=== PATIENT | female | born 1980 | race African-American/Black ===

== ENCOUNTER 2019-08-08 19:03 | Emergency (ER) | payer SELFPAY ==
[2019-08-08] MEDS ORDERED: IPRATROPIUM/ALBUTEROL 0.5-2.5 MG/3 ML AMPUL NEB ONE (19:58)
[2019-08-08] MEDS ORDERED: METHYLPREDNISOLONE INJ 125 MG/2 ML SDV IM ONE (19:58)
[2019-08-08] MEDS ORDERED: CETIRIZINE 10 MG TABLET PO ONE (19:59)
--- NOTE | 2019-08-08 20:01 | ER Document Report ---
ED Medical Screen (RME) - General Chief Complaint: Chest Pain Stated Complaint: CHEST PAINS Time Seen by Provider: 08/08/19 19:53 Notes: Patient is a 39-year-old female with history of asthma who presents the emergency department with chest pain and shortness of breath. Patient states that her chest pain started around 1830 this evening. Patient is visiting from out of town and arrived this morning. Patient has asthma, but forgot to bring her nebulizer treatments and albuterol inhaler. Patient states that she feels short of breath. She also states that she has a sore throat. Exam: Diminished breath sounds throughout all lung conrad. I have greeted and performed a rapid initial assessment of this patient. A comprehensive ED assessment and evaluation of the patient, analysis of test results and completion of medical decision making process will be conducted by an additional ED providers. Physical Exam - Vital signs Vitals: Temp Pulse Resp BP Pulse Ox 98.1 F 75 16 126/80 H 100 08/08/19 19:42 08/08/19 19:42 08/08/19 19:42 08/08/19 19:42 08/08/19 19:42 Course - Vital Signs Vital signs: Temp Pulse Resp BP Pulse Ox 98.1 F 75 16 126/80 H 100 08/08/19 19:42 08/08/19 19:42 08/08/19 19:42 08/08/19 19:42 08/08/19 19:42
[2019-08-08 20:17] LABS: ABSOLUTE BASOPHILS # (AUTO) 0.1 10^3/uL (0.0-0.2); ABSOLUTE EOSINOPHILS # (AUTO) 0.6 10^3/uL (0.0-0.6); ABSOLUTE LYMPHOCYTES (AUTO) 2.5 10^3/uL (0.5-4.7); ABSOLUTE MONOCYTES (AUTO) 0.5 10^3/uL (0.1-1.4); ABSOLUTE NEUT (AUTO) 7.9 10^3/uL (1.7-8.2); BASOPHILS % (AUTO) 0.6 % (0-2); EOSINOPHILS % (AUTO) 5.4 % (0-6); HEMATOCRIT 32.3 % (36.0-47.0); HEMOGLOBIN 10.2 g/dL (12.0-15.5); LYMPHOCYTES % (AUTO) 21.3 % (13-45); MEAN CORPUSCULAR HEMOGLOBIN 23.1 pg (27.0-33.4); MEAN CORPUSCULAR HGB CONC 31.6 g/dL (32.0-36.0); MEAN CORPUSCULAR VOLUME 73 fl (80-97); MONOCYTES % (AUTO) 4.5 % (3-13); PLATELET COUNT 405 10^3/uL (150-450); RED BLOOD COUNT 4.42 10^6/uL (3.72-5.28); RED CELL DISTRIBUTION WIDTH 17.3 % (11.5-14.0); SEGMENTED NEUTROPHILS % (AUTO) 68.2 % (42-78); TOTAL CELLS COUNTED % (AUTO) 100 %; WHITE BLOOD COUNT 11.6 10^3/uL (4.0-10.5)
[2019-08-08 20:34] LABS: ALBUMIN 3.9 g/dL (3.5-5.0); ALKALINE PHOSPHATASE 113 U/L (38-126); ANION GAP 9 (5-19); ASPARTATE AMINO TRANSFERASE 20 U/L (14-36); BILIRUBIN,DIRECT 0.3 mg/dL (0.0-0.4); BILIRUBIN,TOTAL 0.4 mg/dL (0.2-1.3); BLOOD UREA NITROGEN 21 mg/dL (7-20); CALCIUM 9.3 mg/dL (8.4-10.2); CARBON DIOXIDE 26 mmol/L (22-30); CHLORIDE 108 mmol/L (98-107); GLUCOSE 105 mg/dL (75-110); POTASSIUM 4.1 mmol/L (3.6-5.0); TOTAL PROTEIN 7.5 g/dL (6.3-8.2)
--- NOTE | 2019-08-08 20:57 | RADIOLOGY REPORT (SQ) ---
EXAM DESCRIPTION: X-RAY CHEST- One View CLINICAL HISTORY: Shortness of breath COMPARISON: None available TECHNIQUE: Single view of the chest. FINDINGS: There are overlying EKG leads. There are low lung volumes with compressive changes. There are no discrete air space infiltrates, pneumothoraces or pleural effusions. The pulmonary vascularity is normal. The cardiomediastinal silhouette is normal in size. No suspicious lytic or blastic osseous lesions are identified. IMPRESSION: There are no acute lung parenchymal findings.
--- NOTE | 2019-08-08 22:09 | ER Document Report ---
ED General - General Chief Complaint: Shortness Of Breath Stated Complaint: CHEST PAINS Time Seen by Provider: 08/08/19 19:53 Mode of Arrival: Ambulatory Information source: Patient TRAVEL OUTSIDE OF THE [place] IN LAST 30 DAYS: No - HPI Onset: This morning Onset/Duration: Gradual Quality of pain: Sharp Severity: Moderate Pain Level: 2 Associated symptoms: Nonproductive cough, Fever - to 101F, Hoarseness, Sore throat Exacerbated by: Coughing Relieved by: Denies Similar symptoms previously: No Recently seen / treated by doctor: No Notes: 39 year old female with a history of Asthma here for cough, congestion, shortness of breath, sore throat, and fever to 101F since this morning. The patient is passing through on her way home to [place] and she did not have an inhaler so she came to the ER. The patient was given a neb and steroids prior to me seeing her. The patient says she felt much better after this treatment. The patient denies known sick contacts. - Related Data Allergies/Adverse Reactions: tramadol Allergy (Verified 08/08/19 20:11) Home Medications: albuterol inhaler/neb. women vitamins Past Medical History - General Information source: Patient - Social History Smoking Status: Never Smoker Frequency of alcohol use: Occasional Drug Abuse: None Lives with: Family Family History: Reviewed & Not Pertinent Patient has suicidal ideation: No Patient has homicidal ideation: No Pulmonary Medical History: Reports: Hx Asthma Past Surgical History: Reports: Hx Section, Hx Orthopedic Surgery - ankle Review of Systems - Review of Systems Constitutional: Fever, Malaise EENT: Nose congestion, Throat pain, Throat swelling Cardiovascular: No symptoms reported Respiratory: Cough, Short of breath, Wheezing Gastrointestinal: No symptoms reported Genitourinary: No symptoms reported Female Genitourinary: No symptoms reported Musculoskeletal: No symptoms reported Skin: No symptoms reported Hematologic/Lymphatic: No symptoms reported Neurological/Psychological: No symptoms reported -: Yes All other systems reviewed and negative Physical Exam - Vital signs Vitals: Temp Pulse Resp BP Pulse Ox 98.1 F 75 16 126/80 H 100 08/08/19 19:42 08/08/19 19:42 08/08/19 19:42 08/08/19 19:42 08/08/19 19:42 - Notes Notes: GENERAL: Well-appearing, well-nourished and in no acute distress. HEAD: Atraumatic, normocephalic. EYES: Pupils equal round and reactive to light, extraocular movements intact, sclera anicteric, conjunctiva are normal. ENT: Nares patent, oropharynx with erythema and swelling of tonsils and uvula. Moist mucous membranes. NECK: Normal range of motion, supple without lymphadenopathy or JVD. LUNGS: Breath sounds clear to auscultation bilaterally and equal. No wheezes rales or rhonchi. HEART: Regular rate and rhythm without murmurs, rubs or gallops. ABDOMEN: Soft, nontender, normoactive bowel sounds. No guarding, no rebound. No masses appreciated. EXTREMITIES: Normal range of motion, no pitting or edema. No clubbing or cyanosis. NEUROLOGICAL: Cranial nerves II through XII grossly intact. Normal speech, normal gait. PSYCH: Normal mood, normal affect. SKIN: Warm, Dry, normal turgor, no rashes or lesions noted. Course - Re-evaluation Re-evalutation: 08/08/19 23:09 The patient came to the ER for URI like symptoms along with wheezing and short ness of breath. The patient likely has a URI which triggerd an asthma flare. The patient was treated with a neb and steroids prior to me seeing her and she felt much better. Patient tested negative for the Flu and Strep. Patient DCed with a script for Albuterol and Tessalon Perles. - Vital Signs Vital signs: Temp Pulse Resp BP Pulse Ox 98.1 F 75 16 126/80 H 97 08/08/19 19:42 08/08/19 19:42 08/08/19 19:42 08/08/19 19:42 08/08/19 20:26 - Laboratory Result Diagrams: 08/08/19 20:05 08/08/19 20:05 Laboratory results interpreted by me: 08/08/19 08/08/19 20:05 20:05 WBC 11.6 H Hgb 10.2 L Hct 32.3 L MCV 73 L MCH 23.1 L MCHC 31.6 L RDW 17.3 H Chloride 108 H BUN 21 H - Diagnostic Test Radiology reviewed: Image reviewed, Reports reviewed - EKG Interpretation by Me EKG shows normal: Sinus rhythm, [place], Intervals, QRS Complexes, ST-T Waves Rate: Normal Rhythm: NSR Discharge - Discharge Clinical Impression: URI (upper respiratory infection) Qualifiers: URI type: unspecified viral URI Qualified Code(s): J06.9 - Acute upper respiratory infection, unspecified Asthma Qualifiers: Asthma severity: mild Asthma persistence: intermittent Asthma complication type: uncomplicated Qualified Code(s): J45.20 - Mild intermittent asthma, uncomplicated Condition: Stable Disposition: HOME, SELF-CARE Instructions: Upper Respiratory Illness ([facility]), Asthma ([facility]) Additional Instructions: Use albuterol as needed for shortness of breath and wheezing. Use Tessalon Perles for cough. You tested negative for the flu and for strep in the ER and you had no evidence of pneumonia on chest xray. Seek medical attention for trouble breathing or if you are worse. Prescriptions: Benzonatate [Tessalon Perles 100 mg Capsule] 100 mg PO Q8HP PRN #20 capsule PRN Reason: Albuterol Sulfate [Proair Digihaler] 90 mcg IH Q4H PRN #1 aer.pw.bas PRN Reason:
--- NOTE | 2019-08-08 22:49 | EKG REPORT ---
SEVERITY:- NORMAL ECG - SINUS RHYTHM : Confirmed by: Krystyna Bay MD 08-Aug-2019 22:49:06
[2019-08-08 23:06] LABS: A TYPE INFLUENZA AG NEGATIVE (NEGATIVE); B INFLUENZA AG NEGATIVE (NEGATIVE)
[2019-08-08] MEDS ORDERED: BENZONATATE 100 MG CAPSULE PO ONE (23:08)
[2019-08-08] MEDS ORDERED: GUAIFENESIN/D-METHORPHAN (200-20 MG) SYRUP 10 ML PO ONE (23:09)
[2019-08-08 23:24] VITALS: BP 117/80
== END 2019-08-08 23:23 | disposition home or self-care (01) ==
LOC: ER 19:03
DX: J06.9 Acute upper respiratory infection, unspecified (principal); J45.20 Mild intermittent asthma, uncomplicated; R06.02 Shortness of breath; R07.9 Chest pain, unspecified; R50.9 Fever, unspecified; R05 Cough; R49.0 Dysphonia; J02.9 Acute pharyngitis, unspecified; R09.81 Nasal congestion; Z79.899 Other long term (current) drug therapy
CPT/HCPCS: 93005; 94640; 99285; 96372; 36415; 87070; 87880; 85025; 80053; 84484; 87804; 71045; 93010; J2930; J3490; J7620